=== PATIENT | male | born 1975 | race Caucasian/White ===

== ENCOUNTER 2024-04-23 13:02 | Inpatient (IN) | payer MEDICAID, OTHER ==
[~2024-04-23] VITALS: Ht 182.9 cm; Wt 92.5 kg
[2024-04-23] VITALS (18 sets, daily range): BP systolic 112–146; BP diastolic 64–85; PULSE 51–67; RESP 11–20; TEMP 97–98.5; O2SAT 92–99
--- NOTE | 2024-04-23 13:14 | ED.PDOC ---
HPI Comments 48-year-old male brought in by EMS presents with a chief complaint of chest pain x onset 1100 this morning. Patient states that his chest pain is localized to his substernal chest region, non-radiating, describes as crushing. Patient also appears diaphoretic upon arrival. CODE STEMI was called at 13:13 overhead. No other symptoms or modifying factors present at this time. Time Seen by MD: 13:00 Reviewed Notes: Track Supervisor Notes, Medications, Allergies Allergies: Coded Allergies: NO KNOWN ALLERGIES (Unverified , 04/23/24) Information Source: Patient, Emergency Med Personnel Mode of Arrival: EMS Severity: Moderate Timing: Hours Duration: Since onset Prehospital treatment: ASA (324), NTG (2) Location: Substernal Radiation: No Radiation Quality: Crushing Onset: At Rest Cardiac Risk Factors: Hyperlipidemia PE Risk Factors: None History of: None Past Medical History PAST MEDICAL HISTORY: High Lipids Surgical History: Denies all surgeries Family History Family History: Reviewed,noncontributory to illness Social History Smoker: Non-Smoker Alcohol: Denies ETOH Use Drugs: Denies Drug Use Lives In: Home Constitutional: reports: diaphoresis; denies: chills, fatigue, fever, malaise, sweats, weakness, others EENTM: denies: blurred vision, double vision, ear bleeding, ear discharge, ear drainage, ear pain, ear ringing, eye pain, eye redness, hearing loss, mouth pain, mouth swelling, nasal discharge, nose bleeding, nose congestion, nose pain, photophobia, tearing, throat pain, throat swelling, voice changes, others Respiratory: denies: cough, hemoptysis, orthopnea, SOB at rest, shortness of breath, SOB with excertion, stridor, wheezing, others Cardiovascular: reports: chest pain; denies: dizzy spells, diaphoresis, Dyspnea on exertion, edema, irregular heart beat, left arm pain, lightheadedness, palpitations, PND, syncope, others Gastrointestinal: denies: abdomen distended, abdominal pain, blood streaked bowels, constipated, diarrhea, dysphagia, difficulty swallowing, hematemesis, melena, nausea, poor appetite, poor fluid intake, rectal bleeding, rectal pain, vomiting, others Genitourinary: denies: burning, dysuria, flank pain, frequency, hematuria, incontinence, penile discharge, penile sore, pain, testicle pain, testicle swelling, urgency, others Neurological: denies: dizziness, fainting, headache, left sided numbness, left sided weakness, numbness, paresthesia, pre-existing deficit, right sided numbness, right sided weakness, seizure, speech problems, tingling, tremors, weakness, others Musculoskeletal: denies: back pain, gout, joint pain, joint swelling, muscle pain, muscle stiffness, neck pain, others Integumetry: denies: bruises, change in color, change in hair/nails, dryness, laceration, lesions, lumps, rash, wounds, others Allergic/Immunocompromised: denies: Difficulty Healing, Frequent Infections, Hives, Itching, others Hematologic/Lymphatic: denies: anemia, blood clots, easy bleeding, easy bruising, swollen glands, others Endocrine: denies: excessive hunger, excessive sweating, excessive thirst, excessive urination, flushing, intolerance to cold, intolerance to heat, unexplained weight gain, unexplained weight loss, others Psychiatric: denies: anxiety, bipolar disorder, depression, hopeless, panic disorder, schizophrenia, sleepless, suicidal, others All Other Systems: Reviewed and Negative Physical Exam General Appearance: No Apparent Distress, Normal HEENT: Normal ENT Inspection, Pharynx Normal, TMs Normal Neck: Full Range of Motion, Non-Tender, Normal, Normal Inspection Respiratory: Chest Non-Tender, Lungs Clear, No Accessory Muscle Use, No Respiratory Distress, Normal Breath Sounds Cardiovascular: No Edema, No JVD, No Murmur, No Gallop, Normal Peripheral Pulses, Regular Rate/Rhythm Breast Exam: Deferred Gastrointestinal: No Organomegaly, Non Tender, No Pulsatile Mass, Normal Bowel Sounds, Soft Genitalia: Deferred Pelvic: Deferred Rectal: Deferred Extremities: No calf tenderness, Normal capillary refill, Normal inspection, Normal range of motion, Non-tender, No pedal edema Musculoskeletal : Apperance: Normal Neurologic: Alert, psychiatric aides teacher II-XII nml as Tested, No Motor Deficits, Normal Affect, Normal Mood, No Sensory Deficits Cerebellar Function: Normal Reflexes: Normal Skin: Dry, Normal Color, Warm Lymphatic: No Adenopathy Was a procedure done? Was a procedure done?: No CP Differential Dx Differential Diagnosis: A-Flutter, Angina, Heart Failure, Hypoxia, VT, PAC's, Pulmonary Embolus, PVC's, Renal Failure, V-Fib Differential Diagnosis: HTN Accelerated, HTN Encephalopathy Differential Diagnosis: Myocardial Infarction X-Ray, Labs, Meds, VS Vital Signs Date Time Temp Pulse Resp B/P (MAP) Pulse Ox O2 Delivery O2 Flow Rate FiO2 04/23/24 13:15 62 17 96 Room Air* 0 21 04/23/24 13:15 62 17 107/50 (69) 96 04/23/24 13:06 51 04/23/24 13:04 52 04/23/24 13:02 98.6 53 13 107/50 (69) 96 Lab Test 04/23/24 13:10 Range/Units White Blood Count 14.8 H 4.4-10.8 10^3/uL Red Blood Count 4.86 4.5-5.90 10^6/uL Hemoglobin 15.1 13.5-17.5 g/dL Hematocrit 44.6 41.0-53.0 % Mean Corpuscular Volume 91.7 80.0-100.0 fL Mean Corpuscular Hemoglobin 31.0 28.0-32.0 pg Mean Corpuscular Hemoglobin Concent 33.8 32.0-36.0 g/dL Red Cell Distribution Width 14.2 11.8-14.3 % Platelet Count 346 140-450 10^3/uL Mean Platelet Volume 7.2 6.9-10.8 fL Neutrophils (%) (Auto) 67.7 37.0-80.0 % Lymphocytes (%) (Auto) 24.0 10.0-50.0 % Monocytes (%) (Auto) 6.0 0.0-12.0 % Eosinophils (%) (Auto) 1.5 0.0-7.0 % Basophils (%) (Auto) 0.8 0.0-2.0 % Neutrophils # (Auto) 10.1 H 1.6-8.6 10 ^3/uL Lymphocytes # (Auto) 3.6 0.4-5.4 10 ^3/uL Monocytes # (Auto) 0.9 0-1.3 10 ^3/uL Eosinophils # (Auto) 0.2 0-0.8 10 ^3/uL Basophils # (Auto) 0.1 0-0.2 10 ^3/uL Nucleated Red Blood Cells 0.0 % Prothrombin Time 10.9 9.3-11.8 sec Prothrombin Time INR 1.03 0.9-1.15 Activated Partial Thromboplast Time 26.8 24.5-34.5 SEC Sodium Level 141 136-145 mmol/L Potassium Level 3.7 3.5-5.1 mmol/L Chloride Level 110 H 98-107 mmol/L Carbon Dioxide Level 25 20-31 mmol/L Anion Gap 6 5-15 Blood Urea Nitrogen 7 L 9-23 mg/dL Creatinine 0.96 0.700-1.30 mg/dL Glomerular Filtration Rate Calc 97 >90 mL/min BUN/Creatinine Ratio 7.3 L 10.0-20.0 Serum Glucose 167 H 74-106 mg/dL Lactic Acid Level 3.3 *H 0.4-2.0 mmol/L Calcium Level 9.5 8.7-10.4 mg/dL Total Bilirubin 0.4 0.2-1.0 mg/dL Aspartate Amino Transferase (AST) 12 L 13-40 U/L Alanine Aminotransferase (ALT) 9 7-40 U/L Alkaline Phosphatase 73 46-116 U/L Troponin I High Sensitivity 9 </=54 ng/L B-Type Natriuretic Peptide 175.00 0-100 pg/mL Total Protein 6.8 5.7-8.2 g/dL Albumin 4.1 3.2-4.8 g/dL Current Medications Medications (Trade) Dose Ordered Sig/Michelle Route Start Time Stop Time Status Last Admin Heparin Sodium (Porcine) 5,000 units ONCE ONCE IV 04/23/24 13:15 04/23/24 13:16 DC 04/23/24 13:20 Time of 1ST Reevaluation: 13:30 Reevaluation 1ST: Unchanged Patient Education/Counseling: Diagnosis, Treatment, Prognosis Family Education/Counseling: No Family Present Departure 1 Departure Time of Disposition: 14:37 (Patient presented with chest pain that was concerning for possible STEMI, ACS, PE, Pneumonia, Muscle Strain, COPD, Dissection. Data: 1. I ordered and reviewed the result of at least 3 labs incl uding a CBC, BMP, and Troponin. 2. I independently interpreted the following tests: EKG which shows concern for acute myocardial infarction and Chest X-ray which shows but I just.Risk:This patient has a high risk of morbidity due to further diagnostic testing or treatment and may suffer from an acute cardiac or respiratory disorder. Workup reveals concerning for ACS and patient was urgently taken to the computer lab aide.) Impression: Primary Impression: Acute chest pain Additional Impression: Diaphoresis Disposition: ADMITTED INPATIENT Admit to: Med Surg Condition: Critical Critical Care Note Critical Care Time?: Yes Critical care comment: Severe acute chest pain Authorized and Performed by: Miko Boswell MD Total critical care time: Approximately 38 minutes Due to a high probability of clinically significant, life threatening deterioration, the patient required my highest level of preparedness to intervene emergently and I personally spent this critical care time directly and personally managing the patient. This critical care time included obtaining a history; examining the patient; pulse oximetry; ordering and review of studies; arranging urgent treatment with development of a management plan; evaluation of patient's response to treatment; frequent reassessment; and, discussions with other providers. This critical care time was performed to assess and manage the high probability of imminent, life-threatening deterioration that could result in multi-organ failure. It was exclusive of separately billable procedures and treating other patients and teaching time. Please see my other sections and the rest of the note for further information on patient assessment and treatment. Stability Stability form required: No Heart Score Heart Score: Heart Score Response (Comments) Value History Highly Suspicious [address]-Deviation 2 Age 45-64 1 Risk Factors 1 or 2 risk factors 1 Troponin 1-2 x's Normal limit 1 Total 7 I personally scribed for MIKO BOSWELL MD ([email or web address]) on 04/23/24 at 13:14. Electronically submitted by Franco Kimble ([email or web address]). MIKO BOSWELL MD Apr 23, 2024 13:14
[2024-04-23] MEDS: HEPARIN SODIUM (PORCINE) 5000 UNITS/ML 1ML VIAL IV ONE (13:20)
[2024-04-23 13:38] LABS: Basophils # (auto) 0.1 10 ^3/uL (0-0.2); Basophils % (auto) 0.8 % (0.0-2.0); Eosinophils # (auto) 0.2 10 ^3/uL (0-0.8); Eosinophils % (auto) 1.5 % (0.0-7.0); Hematocrit 44.6 % (41.0-53.0); Hemoglobin 15.1 g/dL (13.5-17.5); Lymphocytes # (auto) 3.6 10 ^3/uL (0.4-5.4); Mean Corpuscular Hgb Conc. 33.8 g/dL (32.0-36.0); Mean Corpuscular Volume 91.7 fL (80.0-100.0); Monocytes # (auto) 0.9 10 ^3/uL (0-1.3); Neutrophils # (auto) 10.1 10 ^3/uL (1.6-8.6); Neutrophils % (auto) 67.7 % (37.0-80.0); Platelet Count (auto) 346 10^3/uL (140-450); Red Blood Cells 4.86 10^6/uL (4.5-5.90); Red Cell Distribution Width 14.2 % (11.8-14.3); White Blood Cell 14.8 10^3/uL (4.4-10.8)
--- NOTE | 2024-04-23 13:42 | DVH ---
CHEST RADIOGRAPH Indication:CHEST PAIN Technique: Single frontal view of the chest was obtained COMPARISON: None FINDINGS: Lines and Tubes: None Lungs: Clear Pleura: No effusion. No pneumothorax. Cardiomediastinal contours: Unremarkable Bones: Unremarkable IMPRESSION: No acute disease.
[2024-04-23] MEDS: IODIXANOL 320MG/ML 100ML BTL IV ONE (13:47)
[2024-04-23] MEDS: HEPARIN IN NS 1000Units/500mL 1,500 ML ONE (13:47)
--- NOTE | 2024-04-23 13:47 | DVHINCON2 ---
Date Seen: Apr 23, 2024 Referring Physician MD Andreia Reason for Consultation Chest pain History of Present Illness This is a 48-year-old male patient who presents to the emergency room with chief complaint of chest pain. The patient reports that when he woke up at approximately 11:00 a.m. this morning he noticed the chest pain. He describes it as unprovoked, intermittent, pressure-like in nature, and substernal without radiation. Associated symptoms include diaphoresis. He denies any alleviating or aggravating factors. The patient was brought to the emergency room via EMS. The patient was given sublingual nitroglycerin 0.4mg X 2 doses by EMS prior to arrival. Upon emergency room arrival, a twelve lead electrocardiogram revealed sinus bradycardia with significant S-T segment depression to anterolateral leads. At the time of assessment, there are no laboratory values. Significant past medical history includes hyperlipidemia, tobacco use, remote history of amphetamine use, and obesity. The patient denies any other significant cardiac history. Past Medical History Past medical history reviewed. No other significant than mentioned above. Past Surgical History Denies Family History Family history reviewed. 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 Current Medications Current Medications Medications (Trade) Dose Ordered Sig/Michelle Route PRN Reason Start Time Stop Time Status Last Admin Heparin Sodium/ Dextrose 250 ml @ 9.6 mls/hr Q24H IV 04/23/24 13:15 UNV Review of Systems Constitutional: Diaphoresis, generalized weakness Ears, Nose, & Throat: No symptom reported Eyes: No symptom reported Neurological: No symptoms reported Pulmonary/Respiratory: No symptoms reported Cardiovascular: Chest pain Gastrointestinal: No symptom reported Genitourinary: No symptom reported Musculoskeletal: No symptom reported Skin: No symptom reported Psychiatric: No symptom reported Endocrine: No symptom reported Hematologic/Lymphatic: No symptom reported Vital Signs Vital Signs Date Time Temp Pulse Resp B/P (MAP) Pulse Ox O2 Delivery O2 Flow Rate FiO2 04/23/24 13:15 62 17 96 Room Air* 0 21 04/23/24 13:15 107/50 (69) Physical Exam General Appearance: Cooperative. Overweight Pulmonary/Respiratory: Clear, bilateral breaths sounds. Cardiovascular/Chest: Regular rate and rhythm. Peripheral Pulses: 2+ Radial (R). 2+ Radial (L). 2+ Pedal (R). 2+ Pedal (L) Abdominal Exam: Normal bowel sounds. Ankle Exam: Negative ankle edema Lower extremities: Negative lower extremity edema Neuro/Mental Status: A/OX4, coherent. Thoughts/Psych: Normal thought pattern. Appropriate mood and affect. Good judgment and insight. Appearance: No acute distress. Skin Exam: Pale, clammy, diaphoretic Labs/Diagnostic Data Labs Test 04/23/24 13:10 Range/Units Assessment Chest pain, rule out coronary artery disease Hyperlipidemia Tobacco use Remote history of amphetamine use (Quit in 2010) Obesity Plan/Recommendation We will continue with following plan/recommendations (Dr. Thorpe): The patient was seen and examined at bedside in the emergency room. The patient remains symptomatic with severe chest pain and diaphoresis. Given the patient's clinical presentation and significant twelve lead electrocardiogram, we will urgently take the patient for a coronary angiogram with left heart catheterization. Plan discussed with . The procedure was discussed with the patient in full detail including risks and benefits. Risks include but are not limited to bleeding, contrast induced nephropathy, stroke, and even . The patient understands and is agreeable to undergo the procedure. The patient was given a heparin bolus and a heparin drip was initiated by ER physician. We will schedule the patient at soonest availability. vat house laborer team at bedside to transfer patient. Thank you for allowing us to care for this patient. Please call with any questions or concerns. Critical care time spent: 40 minutes This medical document was created using an electronic medical record system with voice recognition software and computerized dictation system. Although this document has been carefully reviewed, there might still be some phonetic and typographical errors. Occasional wrong-word or ``sound-alike substitutions may have occurred due to the inherent limitations of voice recognition software. These areas are purely typographical due to imperfections of the software programs and do not reflect any compromise in the patient's medical care. Please read the chart carefully and recognize, using context, where these substitutions have occurred. Plan discussed with: Patient Date of Service: Apr 23, 2024 Billing Provider: RAFAEL THORPE MD Cardiology Common Codes: 09233-CECAKNP INP/OBS CARE (High) GRECIA JIANG PROTECTIVE SERVICES CASE WORKER Apr 23, 2024 13:47
[2024-04-23] MEDS: ANGIOMAX 250 MG VIAL IV ONE (13:48)
[2024-04-23] MEDS: SODIUM CHL 0.9% 50 ML ONE (13:49)
[2024-04-23] MEDS: MIDAZOLAM HCL 2MG/2ML 2ml VIAL (1mg/ml) ONE (13:49)
[2024-04-23] MEDS: fentaNYL CITRATE 100 MCG/2 ML VL ONE (13:49)
[2024-04-23] MEDS: VERAPAMIL 2.5MG/ML INJ 2ML VIAL IV ONE (13:49)
[2024-04-23] MEDS: LIDOCAINE 2%HCL (LOCAL ANESTH.) INJ 20ML MDV ONE (13:49)
[2024-04-23 13:57] LABS: Albumin 4.1 g/dL (3.2-4.8); Alkaline Phosphatase 73 U/L (46-116); Anion Gap 6 (5-15); Aspartate Aminotransferase 12 U/L (13-40); BUN/Creatinine Ratio 7.3 (10.0-20.0); Blood Urea Nitrogen 7 mg/dL (9-23); Calcium 9.5 mg/dL (8.7-10.4); Carbon Dioxide 25 mmol/L (20-31); Chloride 110 mmol/L (98-107); Glucose 167 mg/dL (74-106); Potassium 3.7 mmol/L (3.5-5.1); Sodium 141 mmol/L (136-145)
[2024-04-23 13:58] LABS: Alanine Aminotransferase 9 U/L (7-40); Bilirubin, Total 0.4 mg/dL (0.2-1.0); Total Protein 6.8 g/dL (5.7-8.2)
[2024-04-23 14:01] LABS: INR 1.03 (0.9-1.15); Partial Thromboplastin Time 26.8 SEC (24.5-34.5); Prothrombin Time 10.9 sec (9.3-11.8)
[2024-04-23 14:04] LABS: Lactic Acid w/Reflex 3.3 mmol/L (0.4-2.0)
[2024-04-23] MEDS: HEPARIN DRIP/D5W 100UNITS/ML 250 ML IV SCH (14:15)
[2024-04-23] MEDS: ASPirin 325 MG TAB PO ONE (14:15)
--- NOTE | 2024-04-23 14:21 | DVHOP2 ---
Operative Report -Cardiology Report Details Date: 04/23/24 Preop Diagnosis: Acute chest pain with the active ongoing symptoms Postop Diagnosis: Coronary angiogram revealed mild coronary artery disease without significant atherosclerotic plaquing or stenosis to account for patient's symptoms. Thus his symptoms likely representing acute pericarditis Surgeon: Aubire Bain MD Anesthesiologist: Conscious sedation using25 mcg of fentanyl as well as a mg of midazolam. It was given under the direct supervision of the primary procedure analyst myself in the presence of the attending nurses. Patient was monitored for total of35 minutes. Without obvious complication Anesthesia: Local Consent: The patient was informed of the risks and benefits of the procedure. These include but are not limited to complications of anesthesia, postoperative infection, incomplete relief of symptoms, recurrence of symptoms, damage to blood vessels, nerves and tendons, deep venous thrombosis, pulmonary embolism and possible need for repeat surgery in the future. Indications for Surgery: This is a 48-year-old male patient who presents to the emergency room with chief complaint of chest pain. The patient reports that when he woke up at approximately 11:00 a.m. this morning he noticed the chest pain. He describes it as unprovoked, intermittent, pressure-like in nature, and substernal without radiation. Associated symptoms include diaphoresis. He denies any alleviating or aggravating factors. The patient was brought to the emergency room via EMS. The patient was given sublingual nitroglycerin 0.4mg X 2 doses by EMS prior to arrival. Upon emergency room arrival, a twelve lead electrocardiogram revealed sinus bradycardia with significant S-T segment depression to anterolateral leads. At the time of assessment, there are no laboratory values. Significant past medical history includes hyperlipidemia, tobacco use, remote history of amphetamine use, and obesity. The patient denies any other significant cardiac history. Name of Procedure Performed 1. Left heart catheterization with left ventricular end-diastolic pressure measurement. 2. Selective right and left coronary angiography utilizing right transradial approach. 3. Conscious sedation using25 mcg of fentanyl as well as a mg IV midazolam Procedure Details Procedure Details: Procedure note and vascular access: After informed consent was obtained, risks, benefits, complications, and alternatives were discussed in detail with the patient who agrees to have the procedure done. At the beginning of the procedure, the right wrist and the right groin area were prepped and draped in the regular sterile fashion. Patient received conscious sedation of25 mcg of fentanyl as well as a mg IV midazolam. A total of 2 cc of 1% xylocaine was given locally for anesthesia before a six Pashto sheath was placed using modified Seldinger technique without difficulty. A cocktail of 2.5 mg of verapamil as well as 100 mcg of nitroglycerin were given intra-arterial to prevent vasospasm, findings were as follows: 1. Left heart catheterization with left ventricular end-diastolic pressure measu rement: With the help of a tiger five Pashto catheter as well as a J-tip wire we were able to cross the aortic and measured left ventricular end-diastolic pressure which was at 2 mm of mercury. There was a gradient of 14.5 mm of mercury across the aortic valve on the pullback indicating mild aortic valve stenosis. 2. Selective right and left coronary angiography utilizing right transradial approach: 1. Left main comes off the left coronary cusp it is a large, it has no significant atherosclerotic plaquing, it bifurcates distally into large left anterior descending artery as well as medium-sized left circumflex vessel. 2. Left anterior descending artery it is a large vessel with transapical course it gives rise to two diagonal branches, it has mild irregularity with mild atherosclerotic plaquing in 20-30% but no significant stenosis was noted. 3. The left circumflex artery is small to medium-sized vessel gives rise to two obtuse marginal branches it is free of any significant atherosclerotic plaquing. 4. Right coronary artery is a large dominant system it bifurcated distally into large posterior descending artery as well as a large posterolateral branch. It has mild irregularity without significant stenosis. Impression and plan: 1. No significant atherosclerotic plaquing was noted to account for patient's symptoms. 2. Patient presentation could be due to pretty myocarditis I would recommend serial enzymes as well as echocardiogram to rule out the presence of pericardial effusion. 3. Patient would need to be treated as a case of pericarditis or to rule out other causes of chest pain. In the meantime he should undergo risk factor modification as he has mild atherosclerotic plaque changes. Condition Good Disposition AUBRIE BAIN MD Apr 23, 2024 14:21
--- NOTE | 2024-04-23 14:59 | DVHHP2 ---
Admitting Diagnosis: Chest pain History of Present Illness 48-year-old male brought in by EMS presents with a chief complaint of chest pain x onset 1100 this morning. Patient states that his chest pain is localized to his substernal chest region, non-radiating, describes as crushing. Patient also appears diaphoretic upon arrival. CODE STEMI was called at 13:13 overhead. No other symptoms or modifying factors present at this time. PAST MEDICAL HISTORY: High Lipids Surgical History: Denies all surgeries Family History Family History: Reviewed,noncontributory to illness Social History Smoker: Non-Smoker Alcohol: Denies ETOH Use Drugs: Denies Drug Use Lives In: Home Allergies: Coded Allergies: NO KNOWN ALLERGIES (Unverified , 04/23/24) Current Medications Current Medications Medications (Trade) Dose Ordered Sig/Michelle Route PRN Reason Start Time Stop Time Status Last Admin Heparin Sodium/ Dextrose 250 ml @ 10 mls/hr Q24H IV 04/23/24 13:15 04/23/24 15:48 DC Ibuprofen (Motrin Tablet) 600 mg TID PO 04/23/24 15:00 04/23/24 16:59 Pantoprazole Sodium (Protonix) 40 mg DAILY IV 04/23/24 15:00 04/23/24 15:14 Sodium Chloride (Saline Lock Ns) 10 ml Q8HR IV 04/23/24 22:00 Docusate Sodium (Colace Capsule) 100 mg BIDPRN PRN PO FOR CONSTIPATION 04/23/24 15:00 Acetaminophen (Tylenol Tablet) 650 mg Q6HP PRN PO PAIN SCALE 1-3 OR TEMP>100.4 04/23/24 15:00 Hydromorphone HCl (Dilaudid Injection) 0.5 mg Q4HP PRN IV SEVERE PAIN (7-10 PAIN SCALE) 04/23/24 15:00 04/23/24 15:05 Ondansetron HCl (Zofran) 4 mg Q4HP PRN IV NAUSEA / VOMITING 04/23/24 15:00 Enoxaparin Sodium (Lovenox) 40 mg DAILY SC 04/23/24 15:00 04/23/24 15:27 Nitroglycerin (Ntrostat Sublingual) 0.4 mg Q5MINP PRN SL FOR CHEST PAIN 04/23/24 15:00 Morphine Sulfate 2 mg Q30M PRN IV FOR CHEST PAIN 04/23/24 15:00 Vital Signs Vital Signs Date Time Temp Pulse Resp B/P (MAP) Pulse Ox O2 Delivery O2 Flow Rate FiO2 04/23/24 17:00 57 11 125/64 (84) 92 04/23/24 14:15 97.0 97.0 04/23/24 13:15 Room Air* 0 21 Physical Exam General-48 years old male, well nourished well developed. No apparent distress HEENT-atraumatic normocephalic Heart-regular rate and rhythm Lungs clear to auscultate Abdomen soft nontender nondistended Musculoskeletal-no edema cyanosis Neuro-AO x3, no focal deficits Results Labs Test 04/23/24 15:53 04/23/24 13:10 Range/Units Lactic Acid Level 1.6 0.4-2.0 mmol/L Troponin I High Sensitivity 10 </=54 ng/L White Blood Count 14.8 H 4.4-10.8 10^3/uL Red Blood Count 4.86 4.5-5.90 10^6/uL Hemoglobin 15.1 13.5-17.5 g/dL Hematocrit 44.6 41.0-53.0 % Mean Corpuscular Volume 91.7 80.0-100.0 fL Mean Corpuscular Hemoglobin 31.0 28.0-32.0 pg Mean Corpuscular Hemoglobin Concent 33.8 32.0-36.0 g/dL Red Cell Distribution Width 14.2 11.8-14.3 % Platelet Count 346 140-450 10^3/uL Mean Platelet Volume 7.2 6.9-10.8 fL Neutrophils (%) (Auto) 67.7 37.0-80.0 % Lymphocytes (%) (Auto) 24.0 10.0-50.0 % Monocytes (%) (Auto) 6.0 0.0-12.0 % Eosinophils (%) (Auto) 1.5 0.0-7.0 % Basophils (%) (Auto) 0.8 0.0-2.0 % Neutrophils # (Auto) 10.1 H 1.6-8.6 10 ^3/uL Lymphocytes # (Auto) 3.6 0.4-5.4 10 ^3/uL Monocytes # (Auto) 0.9 0-1.3 10 ^3/uL Eosinophils # (Auto) 0.2 0-0.8 10 ^3/uL Basophils # (Auto) 0.1 0-0.2 10 ^3/uL Nucleated Red Blood Cells 0.0 % Prothrombin Time 10.9 9.3-11.8 sec Prothrombin Time INR 1.03 0.9-1.15 Activated Partial Thromboplast Time 26.8 24.5-34.5 SEC Sodium Level 141 136-145 mmol/L Potassium Level 3.7 3.5-5.1 mmol/L Chloride Level 110 H 98-107 mmol/L Carbon Dioxide Level 25 20-31 mmol/L Anion Gap 6 5-15 Blood Urea Nitrogen 7 L 9-23 mg/dL Creatinine 0.96 0.700-1.30 mg/dL Glomerular Filtration Rate Calc 97 >90 mL/min BUN/Creatinine Ratio 7.3 L 10.0-20.0 Serum Glucose 167 H 74-106 mg/dL Calcium Level 9.5 8.7-10.4 mg/dL Total Bilirubin 0.4 0.2-1.0 mg/dL Aspartate Amino Transferase (AST) 12 L 13-40 U/L Alanine Aminotransferase (ALT) 9 7-40 U/L Alkaline Phosphatase 73 46-116 U/L B-Type Natriuretic Peptide 175.00 0-100 pg/mL Total Protein 6.8 5.7-8.2 g/dL Albumin 4.1 3.2-4.8 g/dL Primary Diagnosis Chest pain likely due to acute pericarditis ruled out ACS Lactic acidosis Plan Status post left heart catheterization found the patient has now in cardiac blockage. Per opto mechanical technician recommended to treat as acute pancreatitis Trend lactic acid until normalize. Start ibuprofen 600 mg t.i.d. PPI for GI prophylaxis Check echo of the heart Cardiology consult/follow up Cardiac diet pain control Full code Lovenox DVT prophylaxis PPI for GI prophylaxis Plan discussed with: Patient Problems List: (1) Acute chest pain Status: Acute Date of Service: Apr 23, 2024 Billing Provider: SHIRIN BALDWIN MD Common Visit Codes: [id number] INP/OBS CARE (HIGH) SHIRIN BALDWIN MD Apr 23, 2024 14:59
[2024-04-23] MEDS ORDERED: ONDANSETRON HCL 4 MG/2 ML VIAL IV PRN (15:00)
[2024-04-23] MEDS ORDERED: MORPHINE SULFATE INJ 2 MG/ml SYRG IV PRN (15:00)
[2024-04-23] MEDS ORDERED: DOCUSATE SOD 100 MG CAP PO PRN (15:00)
[2024-04-23] MEDS ORDERED: ACETAMINOPHEN 325 MG TAB PO PRN (15:00)
[2024-04-23] MEDS ORDERED: NITROGLYCERIN 0.4 MG SL TAB SL PRN (15:00)
[2024-04-23] MEDS: HYDROmorphone HCL 2 MG/ML VL/or syr IV PRN (15:05)
[2024-04-23] MEDS: HYDROmorphone HCL 2 MG/ML VL/or syr ONE (15:09)
[2024-04-23] MEDS: PANTOPRAZOLE 40 MG/10 ML VIAL INJ IV SCH (15:14)
[2024-04-23] MEDS: ENOXAPARIN SOD 40 MG/0.4 ML SYRINGE SC SCH (15:27)
[2024-04-23] MEDS: IBUPROFEN 600 MG TAB PO SCH (16:59)
--- NOTE | 2024-04-23 18:40 | DVHSR ---
APPROVED REPORT EXAM: Two-dimensional and M-mode echocardiogram with Doppler and color Doppler. Blood Pressure: 107/50 mmHg INDICATION Eval cardiac function, ACS RISK FACTORS Height: 72, Weight: 180 DIMENSIONS LVDd4.9 (3.8-5.7cm)LA (2D)4.3 (1.9-4.0cm)Aortic Root3.4 (2.0-3.7cm) LVDs3.3 (2.5-4.0cm)LA (MM) (1.9-4.0cm)Aortic Cusp Exc2.3 (1.5-2.0cm) EF (%) 62.0 (55-70%)Rt. Atrium4.4 (1.9-4.0cm)Asc. Aorta2.9 cm IVSd1.2 (0.7-1.1cm)RV (D) (1.8-2.4cm) PWd1.2 (0.7-1.1cm) Mitral Valve MitralMitral Stenosis E wave0.83m/sMV Mean GR.mmHg A wave0.46m/sMV Peak GR.53mmHg E/A ratio1.82D MVAcm2 DECEL [id number] 1/2 [id number] IVRTmsDop MVA1.96cm2 Aortic Valve Aortic ValveAortic Stenosis V11.05m/Tal Mean GR.4mmHg V21.38m/Tal Peak GR.8mmHg LVOT Diameter2.1 (1.8-2.4cm)Doppler AVA2.63cm2 Pulmonic Valve V20.73m/s Tricuspid Valve TR Velocity2.25m/s [id number] Conclusion Normal left ventricular size and dimension. Normal left ventricular systolic function estimated ejec tion fraction 55%. Normal diastolic function. Normal right ventricular size and dimension. Normal right ventricular systolic function. Normal biatrial size and dimension. Normal Aortic valve structure and function. Normal mitral valve structure and function. Normal tricuspid structure and function. The pulmonary valve is grossly normal. No pericardial effusion
[2024-04-23] MEDS: SODIUM CHLOR 0.9% PF (SALINE LOCK) 10ML VIAL/SYR IV SCH (22:00)
[2024-04-24] VITALS (7 sets, daily range): BP systolic 110–149; BP diastolic 69–83; PULSE 71–81; RESP 18–19; TEMP 36.7; O2SAT 96–98
[2024-04-24 06:16] LABS: Basophils # (auto) 0.1 10 ^3/uL (0-0.2); Basophils % (auto) 0.3 % (0.0-2.0); Eosinophils # (auto) 0.1 10 ^3/uL (0-0.8); Eosinophils % (auto) 0.5 % (0.0-7.0); Hematocrit 42.2 % (41.0-53.0); Hemoglobin 14.5 g/dL (13.5-17.5); Lymphocytes # (auto) 2.3 10 ^3/uL (0.4-5.4); Lymphocytes % (auto) 12.6 % (10.0-50.0); Mean Corpuscular Hemoglobin 31.1 pg (28.0-32.0); Mean Corpuscular Hgb Conc. 34.5 g/dL (32.0-36.0); Mean Corpuscular Volume 90.1 fL (80.0-100.0); Monocytes % (auto) 5.7 % (0.0-12.0); Neutrophils # (auto) 14.7 10 ^3/uL (1.6-8.6); Neutrophils % (auto) 80.9 % (37.0-80.0); Platelet Count (auto) 253 10^3/uL (140-450); Red Blood Cells 4.68 10^6/uL (4.5-5.90); Red Cell Distribution Width 13.7 % (11.8-14.3); White Blood Cell 18.2 10^3/uL (4.4-10.8)
[2024-04-24 06:34] LABS: Alanine Aminotransferase 10 U/L (7-40); Albumin 4.1 g/dL (3.2-4.8); Alkaline Phosphatase 72 U/L (46-116); Anion Gap 3 (5-15); BUN/Creatinine Ratio 12.3 (10.0-20.0); Blood Urea Nitrogen 10 mg/dL (9-23); Calcium 9.1 mg/dL (8.7-10.4); Carbon Dioxide 27 mmol/L (20-31); Chloride 111 mmol/L (98-107); Glucose 109 mg/dL (74-106); Potassium 4.2 mmol/L (3.5-5.1); Sodium 141 mmol/L (136-145)
[2024-04-24 06:35] LABS: Bilirubin, Total 0.5 mg/dL (0.2-1.0); Total Protein 6.5 g/dL (5.7-8.2)
[2024-04-24 06:36] LABS: Aspartate Aminotransferase < 8 U/L (13-40)
--- NOTE | 2024-04-24 09:18 | DVHPN2 ---
Consult Progress Note Subjective Other Systems: Patient remains in normal sinus rhythm with depressed ST waves on quality assurance monitor. Objective vital signs Vital Sign Date Time Temp Pulse Resp B/P (MAP) Pulse Ox O2 Delivery O2 Flow Rate FiO2 04/24/24 09:03 98.8 74 19 137/79 (98) 96 98.8 04/23/24 19:40 Room Air* 0 21 Total Intake and Output 04/23/24 04/23/24 04/24/24 14:59 22:59 06:59 Intake Total 180 ml Balance 180 ml medications Current Medications Medications Dose Ordered Sig/Michelle Route Start Time Stop Time Status Last Admin Dose Admin Ibuprofen 600 mg TID PO 04/23/24 15:00 04/24/24 06:09 600 MG Pantoprazole Sodium 40 mg DAILY IV 04/23/24 15:00 04/23/24 15:14 40 MG Sodium Chloride 10 ml Q8HR IV 04/23/24 22:00 04/24/24 06:09 10 ML Docusate Sodium 100 mg BIDPRN PRN PO 04/23/24 15:00 Acetaminophen 650 mg Q6HP PRN PO 04/23/24 15:00 Hydromorphone HCl 0.5 mg Q4HP PRN IV 04/23/24 15:00 04/23/24 15:05 0.5 MG Ondansetron HCl 4 mg Q4HP PRN IV 04/23/24 15:00 Enoxaparin Sodium 40 mg DAILY SC 04/23/24 15:00 04/23/24 15:27 40 MG Nitroglycerin 0.4 mg Q5MINP PRN SL 04/23/24 15:00 Morphine Sulfate 2 mg Q30M PRN IV 04/23/24 15:00 Examination: GENERAL:Normal, LUNGS:Normal, CVS:Normal, NEURO:Normal laboratory and microbiology Laboratory Tests 04/24/24 05:53 Test 04/24/24 05:53 Range/Units Serum Glucose 109 H 74-106 mg/dL Problem List/Assessment/Plan Problem List/Assessment/Plan Chest pain, ruled out coronary artery disease Acute pericarditis Hyperlipidemia Tobacco use Remote history of amphetamine use (Quit in 2010) Obesity Plan/Recommendation (Dr. Thorpe): Patient seen and examined at bedside with . The patient underwent a coronary angiogram left heart catheterization on 04/23/2024 which revealed no significant atherosclerotic plaquing. The patient's presentation likely secondary to pericarditis. We will recommend colchicine and ibuprofen treatment. Risk factor modifications also discussed with the patient full detail including dietary and lifestyle changes, and cessation of tobacco use. There is no further inpatient cardiac workup indicated at this time. Thank you for allowing us to care for this patient. Please call with any questions or concerns. This medical document was created using an electronic medical record system with voice recognition software and computerized dictation system. Although this document has been carefully reviewed, there might still be some phonetic and typographical errors. Occasional wrong-word or ``sound-alike substitutions may have occurred due to the inherent limitations of voice recognition software. These areas are purely typographical due to imperfections of the software programs and do not reflect any compromise in the patient's medical care. Please read the chart carefully and recognize, using context, where these substitutions have occurred. Plan discussed with: Patient Date of Service: Apr 24, 2024 Billing Provider: RAFAEL THORPE MD Common Visit Codes: [id number] INP/OBS CARE(HIGH) GRECIA JIANG [facility] Apr 24, 2024 09:18
--- NOTE | 2024-04-24 11:40 | ECG ---
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
[2024-04-24 13:51] LABS: Basophils # (auto) 0.1 10 ^3/uL (0-0.2); Basophils % (auto) 0.5 % (0.0-2.0); Eosinophils # (auto) 0.1 10 ^3/uL (0-0.8); Eosinophils % (auto) 0.5 % (0.0-7.0); Hemoglobin 14.7 g/dL (13.5-17.5); Lymphocytes # (auto) 1.9 10 ^3/uL (0.4-5.4); Lymphocytes % (auto) 12.4 % (10.0-50.0); Mean Corpuscular Hemoglobin 30.1 pg (28.0-32.0); Mean Corpuscular Hgb Conc. 33.4 g/dL (32.0-36.0); Mean Corpuscular Volume 90.3 fL (80.0-100.0); Monocytes # (auto) 0.9 10 ^3/uL (0-1.3); Monocytes % (auto) 5.8 % (0.0-12.0); Neutrophils # (auto) 12.5 10 ^3/uL (1.6-8.6); Neutrophils % (auto) 80.8 % (37.0-80.0); Nucleated Red Blood Cells % 0.1 %; Platelet Count (auto) 268 10^3/uL (140-450); Red Blood Cells 4.87 10^6/uL (4.5-5.90); Red Cell Distribution Width 13.5 % (11.8-14.3); White Blood Cell 15.4 10^3/uL (4.4-10.8)
[2024-04-24 14:09] LABS: Alanine Aminotransferase 12 U/L (7-40); Albumin 3.9 g/dL (3.2-4.8); Alkaline Phosphatase 74 U/L (46-116); Anion Gap 5 (5-15); Aspartate Aminotransferase 9 U/L (13-40); Blood Urea Nitrogen 13 mg/dL (9-23); Calcium 9.6 mg/dL (8.7-10.4); Carbon Dioxide 27 mmol/L (20-31); Chloride 109 mmol/L (98-107); Glucose 108 mg/dL (74-106); Magnesium 2.2 mg/dL (1.6-2.6); Potassium 4.1 mmol/L (3.5-5.1); Sodium 141 mmol/L (136-145)
[2024-04-24 14:10] LABS: Bilirubin, Total 0.6 mg/dL (0.2-1.0); Total Protein 6.3 g/dL (5.7-8.2)
[2024-04-24] MEDS: COLCHICINE 0.6 MG CAP PO ONE (15:48)
[2024-04-24 16:47] LABS: Amphetamine Screen, Urine Neg (NEGATIVE); Barbiturate Scree,Urine Neg (NEGATIVE); Benzodiazephine Screen, Urine Pos (NEGATIVE); Cannabinoid Screen, Urine Neg (NEGATIVE); Cocaine Screen, Urine Neg (NEGATIVE); Opiate Scree,Urine Neg (NEGATIVE); Phencyclidine Screen, Urine Neg (NEGATIVE)
[2024-04-24] MEDS ORDERED: HYDR1TAB97 PO (16:59)
[2024-04-24] MEDS ORDERED: IBUP1TAB5 PO (16:59)
[2024-04-24] MEDS ORDERED: COLC1CAP PO (16:59)
[2024-04-24] MEDS ORDERED: PANT40TA2 PO (16:59)
--- NOTE | 2024-04-24 17:04 | DVHDS2 ---
Discharge Summary Date of Admission Apr 23, 2024 at 14:51 Date of Discharge: Apr 24, 2024 Admitting Diagnosis chest pain, rule out ACS Labs/Diagnostic Data: Laboratory Results Test 04/24/24 16:13 04/24/24 15:55 04/24/24 13:01 04/23/24 15:53 Troponin I High Sensitivity 14 ng/L (</=54) Urine Opiates Screen Neg (NEGATIVE) Urine Fentanyl Screen Pos (NEGATIVE) Urine Barbiturates Screen Neg (NEGATIVE) Urine Phencyclidine Screen Neg (NEGATIVE) Urine Amphetamines Screen Neg (NEGATIVE) Urine Benzodiazepines Screen Pos (NEGATIVE) Urine Cocaine Screen Neg (NEGATIVE) Urine Cannabinoids Screen Neg (NEGATIVE) White Blood Count 15.4 10^3/uL (4.4-10.8) Red Blood Count 4.87 10^6/uL (4.5-5.90) Hemoglobin 14.7 g/dL (13.5-17.5) Hematocrit 44.0 % (41.0-53.0) Mean Corpuscular Volume 90.3 fL (80.0-100.0) Mean Corpuscular Hemoglobin 30.1 pg (28.0-32.0) Mean Corpuscular Hemoglobin Concent 33.4 g/dL (32.0-36.0) Red Cell Distribution Width 13.5 % (11.8-14.3) Platelet Count 268 10^3/uL (140-450) Mean Platelet Volume 7.6 fL (6.9-10.8) Neutrophils (%) (Auto) 80.8 % (37.0-80.0) Lymphocytes (%) (Auto) 12.4 % (10.0-50.0) Monocytes (%) (Auto) 5.8 % (0.0-12.0) Eosinophils (%) (Auto) 0.5 % (0.0-7.0) Basophils (%) (Auto) 0.5 % (0.0-2.0) Neutrophils # (Auto) 12.5 10 ^3/uL (1.6-8.6) Lymphocytes # (Auto) 1.9 10 ^3/uL (0.4-5.4) Monocytes # (Auto) 0.9 10 ^3/uL (0-1.3) Eosinophils # (Auto) 0.1 10 ^3/uL (0-0.8) Basophils # (Auto) 0.1 10 ^3/uL (0-0.2) Nucleated Red Blood Cells 0.1 % Sodium Level 141 mmol/L (136-145) Potassium Level 4.1 mmol/L (3.5-5.1) Chloride Level 109 mmol/L (98-107) Carbon Dioxide Level 27 mmol/L (20-31) Anion Gap 5 (5-15) Blood Urea Nitrogen 13 mg/dL (9-23) Creatinine 0.81 mg/dL (0.700-1.30) Glomerular Filtration Rate Calc 108 mL/min (>90) BUN/Creatinine Ratio 16.0 (10.0-20.0) Serum Glucose 108 mg/dL (74-106) Calcium Level 9.6 mg/dL (8.7-10.4) Magnesium Level 2.2 mg/dL (1.6-2.6) Total Bilirubin 0.6 mg/dL (0.2-1.0) Aspartate Amino Transferase (AST) 9 U/L (13-40) Alanine Aminotransferase (ALT) 12 U/L (7-40) Alkaline Phosphatase 74 U/L (46-116) Total Protein 6.3 g/dL (5.7-8.2) Albumin 3.9 g/dL (3.2-4.8) Lactic Acid Level 1.6 mmol/L (0.4-2.0) Test 04/23/24 13:10 Prothrombin Time 10.9 sec (9.3-11.8) Prothrombin Time INR 1.03 (0.9-1.15) Activated Partial Thromboplast Time 26.8 SEC (24.5-34.5) B-Type Natriuretic Peptide 175.00 pg/mL (0-100) Other Laboratory Tests 04/24/24 13:01 Brief Hx & Hospital Course: 48-year-old male w pmhx of HLD, tobacco abuse, history amphetamine abuse (quit 2010) brought in by EMS presents with a chief complaint of 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 he woke up at approximately 11:00 a.m. morning of admit and he noticed the chest pain. He describes it as unprovoked, intermittent, pressure-like in nature, and substernal without radiation. Associated symptoms include diaphoresis. He denies any alleviating or aggravating factors. The patient was brought to the emergency room via EMS. The patient was given sublingual nitroglycerin 0.4mg X 2 doses by EMS prior to arrival. Upon emergency room arrival, a twelve lead electrocardiogram revealed sinus bradycardia with significant S-T segment depression to anterolateral leads. Patient taken for c oronary angiogram left heart catheterization on 04/23/2024 which revealed no significant atherosclerotic plaquing. The patient's presentation likely secondary to pericarditis. colchicine and ibuprofen treatment started and patient feels significant improvement by next AM. VS stable, stable on tele sinus rhythm. plan patient to finish treatment outpatient follow-up as described plan. diagnosis: Chest pain ruled out WA; Acute pericarditis; Hyperlipidemia; Tobacco use; Obesity Visit and planning required 35 minutes discharge plan - Colchicine and Ibuprofen therapy for acute pericarditis (colchicine 0.6 bid for 3 months, ibuprofen 600 tid for 2 weeks then taper by PCP) - PRN norco 5mg tidprn as needed for pain - follow-up cardiology - follow-up PCP for hospitization review. - continue other home medications. Condition at Discharge: Good Final Diagnosis/Problems List pericarditis. ruled out ACS/CAD. Discharge Disposition: Home Discharge Instruct/Medications Diet: Regular Activity: No Restrictions, As Tolerated Follow Up/Referral: cardiology Discharge Statement: "Patient was advised to return to the ER or call 911 if any headaches, dizziness, shortness of breath, chest pain, abdominal pain, bleeding, fevers, or worsening of medical condition. Patient was counseled about treatment plan, medications, possible side effects, patientverbalized understanding. All questions were answered to the best of my ability. This discharge took greater then 30 minutes in planning, reviewing documentation, counseling the patient, and discussing with other team members." ASSESSMENT ASSESSMENT Hospital Course As above Assessment Chest pain w ruled out ACS and CAD; Acute pericarditis; Hyperlipidemia; Tobacco use; Obesity Date of Service: Apr 24, 2024 Billing Provider: ALE WILLETT MD Common Visit Codes: [id number]/[id number] DISCH DAY >30min ALE WILLETT MD Apr 24, 2024 17:04
[2024-04-25] MEDS ORDERED: COLCHICINE 0.6 MG CAP PO SCH (10:00)
--- NOTE | 2024-04-25 14:26 | ECG ---
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
== END 2024-04-24 19:05 | disposition home or self-care (01) | DRG 192 ==
LOC: ER 13:02 → EDBD 13:02 → TELE 14:51 → TELE-EAST 14:52
PROVIDERS: ADMIT Internal Medicine; ATTEND Student in an Organized Health Care Education/Training Program
PROC: 4A023N7 Measurement of Cardiac Sampling and Pressure, Left Heart, Percutaneous Approach (ICD-10-PCS; principal; 2024-04-23)
PROC: B211YZZ Fluoroscopy of Multiple Coronary Arteries using Other Contrast (ICD-10-PCS; 2024-04-23)
DX: I30.9 Acute pericarditis, unspecified (principal); E66.9 Obesity, unspecified; E78.5 Hyperlipidemia, unspecified; R61 Generalized hyperhidrosis; F32.A Depression, unspecified; F15.10 Other stimulant abuse, uncomplicated; Z87.891 Personal history of nicotine dependence; Z68.27 Body mass index [BMI] 27.0-27.9, adult; Z79.899 Other long term (current) drug therapy; R00.1 Bradycardia, unspecified
CPT/HCPCS: 36415; 71045; 80053; 80307; 83605; 83735; 83880; 84484; 85025; 85610; 85730; 93005; 93306; 93458; 99152; 99291; G0378; J2250; J2470; Q9967

== ENCOUNTER → 2024-06-11 | Outpatient (CLI) | payer MEDICAID ==
[~2024-06-11] MED LIST: COLC1CAP PO; HYDR1TAB97 PO; IBUP1TAB5 PO; PANT40TA2 PO
--- NOTE | 2024-06-12 12:58 | DVHSR ---
APPROVED REPORT EXAM: Two-dimensional and M-mode echocardiogram with Doppler and color Doppler. DIMENSIONS LVDd4.9 (3.8-5.7cm)LA (2D)4.8 (1.9-4.0cm)Aortic Root3.5 (2.0-3.7cm) LVDs3.0 (2.5-4.0cm)LA (MM) (1.9-4.0cm)Aortic Cusp Exc2.1 (1.5-2.0cm) EF (%) 68.0 (55-70%)Rt. Atrium3.6 (1.9-4.0cm)Asc. Aorta cm IVSd1.0 (0.7-1.1cm)RV (D)3.1 (1.8-2.4cm) PWd1.4 (0.7-1.1cm) Mitral Valve MitralMitral Stenosis E wave0.72m/sMV Mean GR.mmHg A wave0.82m/sMV Peak GR.mmHg E/A ratio0.92D MVAcm2 DECEL [id number] 1/2 [place] Aortic Valve Aortic ValveAortic Stenosis V11.07m/Tal Mean GR.4mmHg V21.33m/Tal Peak GR.7mmHg Pulmonic Valve V20.62m/s Tricuspid Valve TR Velocity1.76m/s [id number] LEFT VENTRICLE The Ejection Fraction is >55%. ATRIA The left atrium is mildly dilated. The right atrium size is normal. MITRAL VALVE Mitral annular calcification is mild. There is no mitral valve regurgitation noted. PULMONIC VALVE The pulmonic valve is not well visualized. There is trace to mild pulmonic valvular regurgitation. TRICUSPID VALVE The tricuspid valve is grossly normal. There is trace tricuspid regurgitation. AORTIC VALVE The aortic valve opens well. No aortic regurgitation is present. GREAT VESSELS The aortic root is normal size. PERICARDIAL EFFUSION There is no pericardial effusion. Other Information Technically limited study due to body habitus. Conclusion EF >55% MILD MAC LAE
== END | disposition home or self-care (01) ==
LOC: Rad HDHVI 14:02
PROVIDERS: ATTEND Internal Medicine Cardiovascular Disease
DX: I08.8 Other rheumatic multiple valve diseases (principal); R07.89 Other chest pain
CPT/HCPCS: 93306

== ENCOUNTER → 2024-10-09 | Outpatient (CLI) | payer MEDICAID ==
--- NOTE | 2024-10-11 08:46 | DVHSR ---
APPROVED REPORT EXAM: Two-dimensional and M-mode echocardiogram with Doppler and color Doppler. DIMENSIONS LVDd4.7 (3.8-5.7cm)LA (2D)3.9 (1.9-4.0cm)Aortic Root3.2 (2.0-3.7cm) LVDs2.8 (2.5-4.0cm)LA (MM) (1.9-4.0cm)Aortic Cusp Exc2.0 (1.5-2.0cm) EF (%) 67.0 (55-70%)Rt. Atrium3.6 (1.9-4.0cm)Asc. Aorta3.0 cm IVSd1.3 (0.7-1.1cm)RV (D)4.1 (1.8-2.4cm) PWd1.2 (0.7-1.1cm) Mitral Valve MitralMitral Stenosis E wave0.93m/sMV Mean GR.mmHg A wave0.88m/sMV Peak GR.mmHg E/A ratio1.12D MVAcm2 DECEL [id number] 1/2 [place] Aortic Valve Aortic ValveAortic Stenosis V11.28m/Tal Mean GR.mmHg V21.39m/Tal Peak GR.8mmHg LVOT Diameter2.3 (1.8-2.4cm)Doppler AVA3.82cm2 Pulmonic Valve V21.06m/s Tricuspid Valve TR Velocity1.96m/s [id number] LEFT VENTRICLE The left ventricle is normal size. There is mild left ventricular hypertrophy. The left ventricle is normal in structure and function. The Ejection Fraction is within normal limits. RIGHT VENTRICLE The right ventricle is normal size. ATRIA The left atrial size is normal. The right atrium size is normal. The interatrial septum is intact with no evidence for an atrial septal defect. MITRAL VALVE The mitral valve is normal in structure and function. Mitral annular calcification is mild. There is no mitral valve regurgitation noted. Mitral regurgitation is trace. PULMONIC VALVE The pulmonic valve is not well visualized. TRICUSPID VALVE The tricuspid valve is grossly normal. There is trace tricuspid regurgitation. AORTIC VALVE The aortic valve opens well. No aortic regurgitation is present. GREAT VESSELS The aortic root is normal size. PERICARDIAL EFFUSION There is no pericardial effusion. Other Information Quality : Technically LimitedRhythm : Technically limited study due to body habitus and smoking. Conclusion EF >55% LVH MILD MAC
== END | disposition home or self-care (01) ==
LOC: Rad HDHVI 15:34
PROVIDERS: ATTEND Internal Medicine Cardiovascular Disease
DX: I34.81 Nonrheumatic mitral (valve) annulus calcification (principal); I11.9 Hypertensive heart disease without heart failure; R00.2 Palpitations
CPT/HCPCS: 93306

== ENCOUNTER → 2024-10-14 | Outpatient (CLI) | payer MEDICAID ==
[~2024-10-14] VITALS: Ht 185.4 cm; Wt 89.4 kg
[~2024-10-14] MED LIST changes: +ADENOSINE 75 MG in GIVE UN-DILUTED 0 ML IV ONE; +ADENOSINE 90 MG/30 ML INJ IV ONE
== END | disposition home or self-care (01) ==
LOC: Rad HDHVI 13:48
PROVIDERS: ATTEND Internal Medicine Cardiovascular Disease
DX: I49.1 Atrial premature depolarization (principal); R07.89 Other chest pain; I11.9 Hypertensive heart disease without heart failure; I31.9 Disease of pericardium, unspecified; I25.2 Old myocardial infarction; I73.9 Peripheral vascular disease, unspecified; R00.2 Palpitations; R06.02 Shortness of breath; R94.31 Abnormal electrocardiogram [ECG] [EKG]; E78.00 Pure hypercholesterolemia, unspecified; F17.210 Nicotine dependence, cigarettes, uncomplicated
CPT/HCPCS: 78452; 93017; A9500; J0153; 93005; 96374; 96375

== ENCOUNTER 2024-11-18 03:26 | Inpatient (IN) | payer MEDICAID ==
[2024-11-18] VITALS (8 sets, daily range): BP systolic 127–147; BP diastolic 64–80; PULSE 51–82; RESP 13–17; TEMP 97.5–98.1; O2SAT 95–100
[~2024-11-18] VITALS: Ht 180.3 cm; Wt 93.1 kg
[~2024-11-18 03:26] MED LIST changes: -ADENOSINE 75 MG in GIVE UN-DILUTED 0 ML IV ONE; -ADENOSINE 90 MG/30 ML INJ IV ONE
--- NOTE | 2024-11-18 03:35 | ED.PDOC ---
HPI Comments 49-year-old male with a history of dyslipidemia, previous SD and GERD brought in by EMS from home complaining of chest pain for the past 2 hours. Patient localizes the pain to the retrosternal area, states it started while he was sitting at rest watching TV, states it is constant, pressure-like, nonradiating, no particular exacerbating or alleviating factors. He denies any associated shortness of breath, nausea, vomiting, diaphoresis or edema. Time Seen by MD: 03:29 Reviewed Notes: Nurses Notes, Signal System Testing Maintainer Notes Allergies: Coded Allergies: NO KNOWN ALLERGIES (Unverified , 04/23/24) Home Meds Active Scripts Hydrocodone-Acetaminophen (Hydrocodone/Acetaminophen 5-325 mg) 1 Tab Tab, 1 TAB PO TIDPRN PRN for 7 Days, #21 TAB Prov:ALE WILLETT MD 04/24/24 Pantoprazole Sodium Sesquihydr (Protonix) 40 Mg Tab, 40 MG PO DAILY for 30 Days, #30 TAB Prov:ALE WILLETT MD 04/24/24 Ibuprofen Micronized (Ibuprofen) 600 Mg Tab, 600 MG PO TID for 14 Days, #42 TAB Prov:ALE WILLETT MD 04/24/24 Colchicine (Colchicine) 0.6 Mg Cap, 0.6 MG PO BID for 30 Days, #60 CAP 2 Refills Prov:ALE WILLETT MD 04/24/24 Information Source: Patient, Emergency Med Personnel Mode of Arrival: EMS Past Medical History PAST MEDICAL HISTORY: High Lipids, SD Surgical History: Denies all surgeries Family History Family History: Reviewed,noncontributory to illness Social History Smoker: Cigarettes Alcohol: Denies ETOH Use Drugs: Denies Drug Use Lives In: Home All Other Systems: Reviewed and Negative (Comprehensive systems review obtained and negative except for what is stated in the HPI.) Physical Exam General Appearance: Mild Distress HEENT: Other (Pupils and face symmetric. Moist mucous membranes.) Neck: Full Range of Motion, Normal Inspection Respiratory: Lungs Clear, No Accessory Muscle Use, No Respiratory Distress, Normal Breath Sounds Cardiovascular: No Edema, No JVD, Regular Rate/Rhythm Breast Exam: Deferred Gastrointestinal: Non Tender, Soft Genitalia: Deferred Pelvic: Deferred Rectal: Deferred Extremities: Normal inspection, Normal range of motion, Non-tender, No pedal edema Neurologic: Alert (Oriented x4), Normal Affect, Normal Mood, Other (Ambulatory) Cerebellar Function: NOT DONE Reflexes: NOT DONE Skin: Dry, Normal Color, Warm Lymphatic: NOT DONE EKG EKG : Comments Sinus rhythm, rate 59, normal intervals, normal axis, LVH with secondary repolarization abnormality, old anteroseptal infarct, inferior and lateral T- wave inversion with ST depression Was a procedure done? Was a procedure done?: No CP Differential Dx Differential Diagnosis: Angina, SD, Pulmonary Embolus Differential Diagnosis: CHF Differential Diagnosis: Aortic dissection, Chest Wall Pain, Esophageal reflux/spasm, Gastritis, Pericarditis, Pneumonia X-Ray, Labs, Meds, VS Vital Signs Date Time Temp Pulse Resp B/P (MAP) Pulse Ox O2 Delivery O2 Flow Rate FiO2 11/18/24 05:11 145/82 11/18/24 04:50 59 11/18/24 04:50 142/81 11/18/24 04:12 55 20 125/63 11/18/24 03:51 100/49 11/18/24 03:34 59 11/18/24 03:31 98.7 68 22 142/84 (103) 100 98.7 Lab Test 11/18/24 05:02 11/18/24 03:51 Range/Units Troponin I High Sensitivity Pending 40 </=54 ng/L White Blood Count 14.2 H 4.4-10.8 10^3/uL Red Blood Count 5.18 4.5-5.90 10^6/uL Hemoglobin 15.7 13.5-17.5 g/dL Hematocrit 45.8 41.0-53.0 % Mean Corpuscular Volume 88.5 80.0-100.0 fL Mean Corpuscular Hemoglobin 30.3 28.0-32.0 pg Mean Corpuscular Hemoglobin Concent 34.3 32.0-36.0 g/dL Red Cell Distribution Width 13.8 11.8-14.3 % Platelet Count 319 140-450 10^3/uL Mean Platelet Volume 6.8 L 6.9-10.8 fL Neutrophils (%) (Auto) 71.5 37.0-80.0 % Lymphocytes (%) (Auto) 21.4 10.0-50.0 % Monocytes (%) (Auto) 4.7 0.0-12.0 % Eosinophils (%) (Auto) 1.2 0.0-7.0 % Basophils (%) (Auto) 1.2 0.0-2.0 % Neutrophils # (Auto) 10.2 H 1.6-8.6 10 ^3/uL Lymphocytes # (Auto) 3.1 0.4-5.4 10 ^3/uL Monocytes # (Auto) 0.7 0-1.3 10 ^3/uL Eosinophils # (Auto) 0.2 0-0.8 10 ^3/uL Basophils # (Auto) 0.2 0-0.2 10 ^3/uL Nucleated Red Blood Cells 0.0 % Sodium Level 141 136-145 mmol/L Potassium Level 3.8 3.5-5.1 mmol/L Chloride Level 108 H 98-107 mmol/L Carbon Dioxide Level 25 20-31 mmol/L Anion Gap 8 5-15 Blood Urea Nitrogen 14 9-23 mg/dL Creatinine 1.05 0.700-1.30 mg/dL Glomerular Filtration Rate Calc 86 >90 mL/min BUN/Creatinine Ratio 13.3 10.0-20.0 Serum Glucose 181 H 74-106 mg/dL Calcium Level 9.7 8.7-10.4 mg/dL Total Bilirubin 0.2 0.2-1.0 mg/dL Aspartate Amino Transferase (AST) 10 L 13-40 U/L Alanine Aminotransferase (ALT) 10 7-40 U/L Alkaline Phosphatase 72 46-116 U/L B-Type Natriuretic Peptide 164.50 0-100 pg/mL Total Protein 6.9 5.7-8.2 g/dL Albumin 4.3 3.2-4.8 g/dL Current Medications Medications (Trade) Dose Ordered Sig/Michelle Route Start Time Stop Time Status Last Admin Nitroglycerin (Nitrodur 0.4MG/ Hr) 1 patch ONCE ONCE TD 11/18/24 03:30 11/18/24 03:31 DC 11/18/24 03:51 Morphine Sulfate 4 mg ONCE ONCE IV 11/18/24 03:30 11/18/24 03:31 DC 11/18/24 04:12 Ondansetron HCl (Zofran) 4 mg ONCE ONCE IV 11/18/24 03:30 11/18/24 03:31 DC 11/18/24 04:13 Sodium Chloride 1,000 ml @ 1,000 mls/hr Q1H ONCE IV 11/18/24 04:00 11/18/24 04:59 DC 11/18/24 03:55 Fentanyl Citrate 25 mcg ONCE ONCE IV 11/18/24 04:45 11/18/24 04:46 DC 11/18/24 04:50 Fentanyl Citrate 25 mcg ONCE ONCE IV 11/18/24 05:00 11/18/24 05:01 DC 11/18/24 05:11 PROCEDURE(s): CXRP - CHEST PORTABLE REASON: cp ORDER NUMBER(s): [id number], ACCESSION NUMBER(s): [id number] EXAM: XR Chest, 1 View CLINICAL INDICATION: cp TECHNIQUE: Frontal view of the chest. COMPARISON: XY CHEST PORTABLE on DOS: 04/23/24 FINDINGS: LUNGS AND PLEURAL SPACES: Unremarkable. No consolidation. No pneumothorax. HEART: Cardiomegaly without overt failure. MEDIASTINUM: Unremarkable. Normal mediastinal contour. BONES/JOINTS: Unremarkable. No acute fracture. OTHER FINDINGS: . IMPRESSION: Cardiomegaly without overt failure. X-Ray, Labs, Meds, VS Comment 49 year old male with a history of SD and dyslipidemia and heavy smoking history brought in by EMS from home complaining of chest pain for the last 2 hours Vitals remarkable for BP 142/84, respiratory rate 22 Exam remarkable for moderate distress Rhythm strip independently interpreted by me: Sinus rhythm, rate 59, no ectopy. Chest x-ray IMPRESSION: Cardiomegaly without overt failure. CBC remarkable for WBC 14.2, metabolic panel unremarkable, BNP 164.5, 1st troponin 40 Patient treated with the following in the ED: (was given aspirin 325 mg p.o. by EMS) Nitro patch 0.4 mg to chest wall, morphine 4 mg IV, Zofran 4 mg IV EKG was sent to Dr. Benitez on-call for STEMI. He did not feel the EKG was consistent with STEMI and recommended medical management. On re-evaluation, patient states pain is persistent, so fentanyl 25 mg IV was ordered Plan is to admit the patient for Cardiology evaluation. Time of 1ST Reevaluation: 05:37 Reevaluation 1ST: Improved Patient Education/Counseling: Diagnosis, Treatment, Need For Follow Up Family Education/Counseling: No Family Present Departure 1 Departure Time of Disposition: 05:37 Impression: Primary Impression: Unstable angina Disposition: 09 ADMITTED INPATIENT Admit to: Tele Condition: Guarded Critical Care Note Critical Care Time?: No Stability Stability form required: No Heart Score Heart Score: Heart Score Response (Comments) Value History Highly Suspicious [address]-Deviation 2 Age 45-64 1 Risk Factors >3 or Hx ASHD 2 Troponin Normal limit 0 Total 7 JUNG MARTINEZ MD November 18, 2024 03:35
[2024-11-18] MEDS: NITROGLYCERIN 0.4MG/HR TOPICAL PATCH TD ONE (03:51)
[2024-11-18] MEDS: ASPirin 325 MG TAB PO ONE (03:52)
[2024-11-18] MEDS: SODIUM CHLORIDE 0.9% 1,000 ML IV ONE (03:55)
[2024-11-18 04:04] LABS: Basophils # (auto) 0.2 10 ^3/uL (0-0.2); Basophils % (auto) 1.2 % (0.0-2.0); Eosinophils # (auto) 0.2 10 ^3/uL (0-0.8); Eosinophils % (auto) 1.2 % (0.0-7.0); Hematocrit 45.8 % (41.0-53.0); Hemoglobin 15.7 g/dL (13.5-17.5); Lymphocytes # (auto) 3.1 10 ^3/uL (0.4-5.4); Lymphocytes % (auto) 21.4 % (10.0-50.0); Mean Corpuscular Hemoglobin 30.3 pg (28.0-32.0); Mean Corpuscular Hgb Conc. 34.3 g/dL (32.0-36.0); Mean Corpuscular Volume 88.5 fL (80.0-100.0); Monocytes # (auto) 0.7 10 ^3/uL (0-1.3); Monocytes % (auto) 4.7 % (0.0-12.0); Neutrophils # (auto) 10.2 10 ^3/uL (1.6-8.6); Neutrophils % (auto) 71.5 % (37.0-80.0); Platelet Count (auto) 319 10^3/uL (140-450); Red Blood Cells 5.18 10^6/uL (4.5-5.90); Red Cell Distribution Width 13.8 % (11.8-14.3); White Blood Cell 14.2 10^3/uL (4.4-10.8)
[2024-11-18] MEDS: MORPHINE SULFATE 4 MG/ML SYR/VIAL IV ONE (04:12)
[2024-11-18] MEDS: ONDANSETRON HCL 4 MG/2 ML VIAL IV ONE (04:13)
[2024-11-18 04:21] LABS: Alanine Aminotransferase 10 U/L (7-40); Albumin 4.3 g/dL (3.2-4.8); Alkaline Phosphatase 72 U/L (46-116); Anion Gap 8 (5-15); BUN/Creatinine Ratio 13.3 (10.0-20.0); Blood Urea Nitrogen 14 mg/dL (9-23); Calcium 9.7 mg/dL (8.7-10.4); Carbon Dioxide 25 mmol/L (20-31); Potassium 3.8 mmol/L (3.5-5.1); Sodium 141 mmol/L (136-145); Total Protein 6.9 g/dL (5.7-8.2)
[2024-11-18 04:36] LABS: Aspartate Aminotransferase 10 U/L (13-40); Bilirubin, Total 0.2 mg/dL (0.2-1.0); Chloride 108 mmol/L (98-107); Glucose 181 mg/dL (74-106)
[2024-11-18] MEDS: fentaNYL CITRATE 100 MCG/2 ML VL IV ONE ×2 (04:50→05:11)
--- NOTE | 2024-11-18 05:12 | DVH ---
EXAM: XR Chest, 1 View CLINICAL INDICATION: cp TECHNIQUE: Frontal view of the chest. COMPARISON: XY CHEST PORTABLE on DOS: 04/23/24 FINDINGS: LUNGS AND PLEURAL SPACES: Unremarkable. No consolidation. No pneumothorax. HEART: Cardiomegaly without overt failure. MEDIASTINUM: Unremarkable. Normal mediastinal contour. BONES/JOINTS: Unremarkable. No acute fracture. OTHER FINDINGS: . IMPRESSION: Cardiomegaly without overt failure.
[2024-11-18] MEDS: HYDROmorphone HCL 2 MG/ML VL/or syr IV ONE (06:11)
--- NOTE | 2024-11-18 06:26 | ECG ---
[facility] Test Date: 2024-11-18 Test Time: 03:34:00 Pat Name: GERRY ALLEN Department: ED Room: Gender: M Chair Car Attendant: ANEESH : 1975 Requested By: JUNG CROWELL Order Number: [id number] Reading MD: Measurements Intervals [place] Rate: 59 P: 77 PA: 143 QRS: 76 QRSD: 83 T: 213 QT: 444 QTc: 440 Interpretive Statements Sinus rhythm LVH with secondary repolarization abnormality Anterior Q waves, possibly due to LVH ST depression, consider ischemia, diffuse lds Baseline wander in lead(s) II,III,aVF Please click the below link to view image of tracing.
[2024-11-18 06:34] LABS: Urine Bacteria None Seen /hpf (None Seen)
[2024-11-18 06:57] LABS: Urine Blood Negative /uL (Negative); Urine Clarity Clear (Clear); Urine Color Yellow (Yellow); Urine Mucus FEW (None Seen); Urine Protein, UAD TRACE (Negative); Urine Specific Gravity 1.027 (1.001-1.035); Urine Squamous Epithelial Cell None Seen /hpf (<5); Urine Urobilinogen Normal (Negative); Urine WBC 2 /HPF (0-3)
--- NOTE | 2024-11-18 08:05 | DVHHP2 ---
History of Present Illness Reason for Visit: Chest Pain History of Present Illness Renard Rogers is a 49-year-old male with past medical history of pericarditis, GERD, and hyperlipidemia, who came in with complaints of chest pain. Patient states the pain is substernal, squeezing pain. Began last night about 2300 when he was laying in bed watching TV. He attempted to try and sleep but was unable to due to the pain so he came to the hospital. Patient states he was seen here last April with an angiogram completed. He follows with Dr. Gardner as an outpatient and completed a stress test a couple weeks ago that came back normal according to the patient. Cardiovascular: hyperipidemia GI: GERD Past Surgical History: None Smoke: <1 pack per day ALCOHOL: none Drugs: None Lives: with Family Domestic Violence: Neg Review of Systems Constitutional: No: Fever, Chills, Sweats, Weakness, Malaise, Other Eyes: No: Pain, Vision change, Conjunctivae inflammation, Eyelid inflammation, Other, Redness ENT: No: Ear pain, Ear discharge, Nose pain, Nose discharge, Nose congestion, Mouth pain, Mouth swelling, Throat pain, Throat swelling, Other Respiratory: No: Cough, Dry, Shortness of breath, SOB with excertion, Wheezing, Hemoptysis, Pleuritic Pain, Sputum, Wheezing, Other Cardiovascular: Chest Pain; No: Palpitations, Orthopnea, Paroxysmal Noc. Dyspnea, Edema, Lt Headedness, Other Gastrointestinal: No: Nausea, Vomiting, Abdominal Pain, Diarrhea, Constipation, Melena, Hematochezia, Other Genitourinary: No Dysuria, No Frequency, No Incontinence, No Hematuria, No Retention, No Other Musculoskeletal: No: other, neck pain, shoulder pain, arm pain, back pain, hand pain, leg pain, foot pain Skin: No: Rash, Lesions, Jaundice, Bruising, Other Neurological: No: Weakness, Numbness, Incoordination, Change in speech, Confusion, Seizures, Other Allergies: Coded Allergies: NO KNOWN ALLERGIES (Unverified , 04/23/24) Exam Vital Signs Vital Signs Date Time Temp Pulse Resp B/P (MAP) Pulse Ox O2 Delivery O2 Flow Rate FiO2 11/18/24 07:30 97.5 69 16 126/73 (90) 97 97.5 11/18/24 07:20 Nasal Cannula* 2 28 General Appearance: Alert, Oriented X3, Cooperative, No acute distress HEENT: Atraumatic Respiratory: Clear to auscultation, Normal air movement Cardiovascular: Regular rate, Normal S1, Normal S2, No murmurs Abdominal: Normal bowel sounds, Soft, No tenderness, No hepatospenomegaly Extremities: No clubbing, No edema, Normal pulses, No tenderness/swelling Skin: No rashes, No breakdown, No significant lesion Neuro: Normal gait, Normal speech, Strength at 5/5 X4 ext, Normal tone Psych/Mental Status: Mental status NL, Mood NL Labs/Xrays Labs Test 11/18/24 06:44 11/18/24 06:20 11/18/24 03:51 Range/Units Troponin I High Sensitivity 40 </=54 ng/L Urine Color Yellow Yellow Urine Clarity Clear Clear Urine pH 6.0 5.0-9.0 Urine Specific [place] 1.027 1.001-1.035 Urine Protein Trace H Negative Urine Ketones Trace Negative Urine Blood Negative Negative /uL Urine Nitrite Negative Negative Urine Bilirubin Negative Negative Urine Urobilinogen Normal Negative mg/dL Urine Leukocyte Esterase Negative Negative /uL Urine RBC 2 0 - 3 /hpf Urine Microscopic WBC 2 0-3 /HPF Urine Squamous Epithelial Cells None seen <5 /hpf Urine Bacteria None seen None Seen /hpf Urine Mucus Few None Seen Urine Glucose 3+ H Normal mg/dL White Blood Count 14.2 H 4.4-10.8 10^3/uL Red Blood Count 5.18 4.5-5.90 10^6/uL Hemoglobin 15.7 13.5-17.5 g/dL Hematocrit 45.8 41.0-53.0 % Mean Corpuscular Volume 88.5 80.0-100.0 fL Mean Corpuscular Hemoglobin 30.3 28.0-32.0 pg Mean Corpuscular Hemoglobin Concent 34.3 32.0-36.0 g/dL Red Cell Distribution Width 13.8 11.8-14.3 % Platelet Count 319 140-450 10^3/uL Mean Platelet Volume 6.8 L 6.9-10.8 fL Neutrophils (%) (Auto) 71.5 37.0-80.0 % Lymphocytes (%) (Auto) 21.4 10.0-50.0 % Monocytes (%) (Auto) 4.7 0.0-12.0 % Eosinophils (%) (Auto) 1.2 0.0-7.0 % Basophils (%) (Auto) 1.2 0.0-2.0 % Neutrophils # (Auto) 10.2 H 1.6-8.6 10 ^3/uL Lymphocytes # (Auto) 3.1 0.4-5.4 10 ^3/uL Monocytes # (Auto) 0.7 0-1.3 10 ^3/uL Eosinophils # (Auto) 0.2 0-0.8 10 ^3/uL Basophils # (Auto) 0.2 0-0.2 10 ^3/uL Nucleated Red Blood Cells 0.0 % D-Dimer, Quantitative < 0.19 0.0-0.49 mg/L FEU Sodium Level 141 136-145 mmol/L Potassium Level 3.8 3.5-5.1 mmol/L Chloride Level 108 H 98-107 mmol/L Carbon Dioxide Level 25 20-31 mmol/L Anion Gap 8 5-15 Blood Urea Nitrogen 14 9-23 mg/dL Creatinine 1.05 0.700-1.30 mg/dL Glomerular Filtration Rate Calc 86 >90 mL/min BUN/Creatinine Ratio 13.3 10.0-20.0 Serum Glucose 181 H 74-106 mg/dL Calcium Level 9.7 8.7-10.4 mg/dL Total Bilirubin 0.2 0.2-1.0 mg/dL Aspartate Amino Transferase (AST) 10 L 13-40 U/L Alanine Aminotransferase (ALT) 10 7-40 U/L Alkaline Phosphatase 72 46-116 U/L B-Type Natriuretic Peptide 164.50 0-100 pg/mL Total Protein 6.9 5.7-8.2 g/dL Albumin 4.3 3.2-4.8 g/dL EXAM: XR Chest, 1 View FINDINGS: LUNGS AND PLEURAL SPACES: Unremarkable. No consolidation. No pneumothorax. HEART: Cardiomegaly without overt failure. MEDIASTINUM: Unremarkable. Normal mediastinal contour. BONES/JOINTS: Unremarkable. No acute fracture. OTHER FINDINGS: . IMPRESSION: Cardiomegaly without overt failure. Assessment/Plan Assessment/Plan Assessment: Unstable angina, R/O ACS, Hyperglycemia, Cardiomegaly, Hyperlipidemia, GERD, Plan: Admit to Tele, Cardiology consult, Lipid panel, A1c, TSH, Home medications reconciled, Plan discussed with: Patient My Orders Orders - SHANNON CHRISTENSEN Procedure Category Date Status Time Admit ADMIT 11/18/24 Verified 08:01 Code Status CODE 11/18/24 Verified 08:01 2 Gm Sodium Diet DIET 11/18/24 Verified Breakfast Sodium Chloride Lock PHA 11/18/24 Verified (Saline Lock Ns) 14:00 Hydrocodone-Acet PHA 11/18/24 Verified 5/325mg Tab ([place] 08:15 Ondansetron Hcl PHA 11/18/24 Verified (Zofran) 08:15 Docusate Sodium PHA 11/18/24 Verified Capsule (Colace 08:15 Complete Blood Count LAB 11/19/24 Verified 04:00 Comprehensive LAB 11/19/24 Verified Metabolic Panel 04:00 Condition: Serious ALIA 11/18/24 Verified 08:01 Acetaminophen Tablet PHA 11/18/24 Verified (Tylenol Tablet) 08:15 Nitroglycerin PHA 11/18/24 Verified Sublingual (Ntrostat 08:15 Morphine Sulfate PHA 11/18/24 Verified Injection 08:15 Stat Ekg For Chest [facility] 11/18/24 Verified Pain 08:01 Notify Md Of Changes [facility] 11/18/24 Verified From Base 08:01 Cow Tester For [facility] 11/18/24 Verified 24 Hours 08:01 Emergency Dysrhythmia [facility] 11/18/24 Verified Protocol 08:01 Rhythm Strips Once [facility] 11/18/24 Verified Every Shift 08:01 Oxygen By Nasal RT 11/18/24 Verified Cannula 08:01 * Cardiology Consult CONS 11/18/24 Verified 08:01 Date of Service: November 18, 2024 Billing Provider: SHANNON CHRISTENSEN Common Visit Codes: [id number] INP/OBS CARE (MOD) SHANNON CHRISTENSEN November 18, 2024 08:05
[2024-11-18] MEDS ORDERED: ONDANSETRON HCL 4 MG/2 ML VIAL IV PRN (08:15)
[2024-11-18] MEDS ORDERED: ACETAMINOPHEN 325 MG TAB PO PRN (08:15)
[2024-11-18] MEDS ORDERED: NITROGLYCERIN 0.4 MG SL TAB SL PRN (08:15)
[2024-11-18] MEDS ORDERED: DOCUSATE SOD 100 MG CAP PO PRN (08:15)
[2024-11-18] MEDS ORDERED: MORPHINE SULFATE INJ 2 MG/ml SYRG IV PRN (08:15)
[2024-11-18 08:34] LABS: Amphetamine Screen, Urine Neg (NEGATIVE); Barbiturate Scree,Urine Neg (NEGATIVE); Benzodiazephine Screen, Urine Neg (NEGATIVE); Cannabinoid Screen, Urine Neg (NEGATIVE); Cocaine Screen, Urine Neg (NEGATIVE); Opiate Scree,Urine Pos (NEGATIVE); Phencyclidine Screen, Urine Neg (NEGATIVE)
[2024-11-18] MEDS: HYDROcodone-ACET 5/325MG TAB PO PRN (09:46)
[2024-11-18 10:03] LABS: Cholesterol 215 mg/dL (< 200); HDL Cholesterol 37 mg/dL (40-59); LDL Cholesterol 157 mg/dL (< 100); Triglycerides 172 mg/dL (< 150)
[2024-11-18] MEDS: PANTOPRAZOLE 40 MG TAB PO SCH (10:06)
--- NOTE | 2024-11-18 13:56 | DVHPN2 ---
Progress Note - Dictate Date Seen: November 18, 2024 Medical Necessity Reason Pt with a Central, PICC or Fol: No Subjective PT WITH PLEURITIC CP WITH DIFFUSE WHEEZING HX OF COPD HX OF PERICARDITIS NL CORONARIES TROPONIN NEGATIVE ECG NO ACUTE CHANGES vital signs Vital Sign Date Time Temp Pulse Resp B/P (MAP) Pulse Ox O2 Delivery O2 Flow Rate FiO2 11/18/24 12:00 68 20 146/84 (104) 96 11/18/24 10:36 97.5 97.5 11/18/24 07:20 Nasal Cannula* 2 28 Total Intake and Output 11/17/24 11/17/24 11/18/24 15:00 23:00 07:00 Intake Total 1000 ml Balance 1000 ml medications Current Medications Medications Dose Ordered Sig/Michelle Route Start Time Stop Time Status Last Admin Dose Admin Sodium Chloride 10 ml Q8HR IV 11/18/24 14:00 Acetaminophen/ Hydrocodone Bitart 1 tab Q4HP PRN PO 11/18/24 08:15 11/18/24 09:46 1 TAB Ondansetron HCl 4 mg Q4HP PRN IV 11/18/24 08:15 Docusate Sodium 100 mg BIDPRN PRN PO 11/18/24 08:15 Acetaminophen 650 mg Q6HP PRN PO 11/18/24 08:15 Nitroglycerin 0.4 mg Q5MINP PRN SL 11/18/24 08:15 Morphine Sulfate 2 mg Q30M PRN IV 11/18/24 08:15 Pantoprazole Sodium 40 mg DAILY PO 11/18/24 10:00 11/18/24 10:06 40 MG laboratory and microbiology Laboratory Tests 11/18/24 03:51 Test 11/18/24 03:51 Range/Units Serum Glucose 181 H 74-106 mg/dL Problem List PLEURITIC CP WITH DIFFUSE WHEEZING HX OF COPD HX OF PERICARDITIS NL CORONARIES TROPONIN NEGATIVE ECG NO ACUTE CHANGES Assessment/Plan ABX INHALERS STEROIDS ALL OF COPD EXACERBATION Plan discussed with: Patient REE VERA MD November 18, 2024 13:56
--- NOTE | 2024-11-18 14:09 | DVHPN2 ---
Progress Note Date Seen: November 18, 2024 Medical Necessity Reason Pt with a Central, PICC or Fol: No Subjective Patient reports: No new complaints Review of Systems: HEENT:Normal, CVS:Normal, RESPIRATORY:Normal, GI:Normal, :Normal, MSK:Normal, NEURO:Normal Objective vital signs Vital Sign Date Time Temp Pulse Resp B/P (MAP) Pulse Ox O2 Delivery O2 Flow Rate FiO2 11/18/24 12:00 68 20 146/84 (104) 96 11/18/24 10:36 97.5 97.5 11/18/24 07:20 Nasal Cannula* 2 28 Total Intake and Output 11/17/24 11/17/24 11/18/24 15:00 23:00 07:00 Intake Total 1000 ml Balance 1000 ml medications Current Medications Medications Dose Ordered Sig/Michelle Route Start Time Stop Time Status Last Admin Dose Admin Sodium Chloride 10 ml Q8HR IV 11/18/24 14:00 Acetaminophen/ Hydrocodone Bitart 1 tab Q4HP PRN PO 11/18/24 08:15 11/18/24 09:46 1 TAB Ondansetron HCl 4 mg Q4HP PRN IV 11/18/24 08:15 Docusate Sodium 100 mg BIDPRN PRN PO 11/18/24 08:15 Acetaminophen 650 mg Q6HP PRN PO 11/18/24 08:15 Nitroglycerin 0.4 mg Q5MINP PRN SL 11/18/24 08:15 Morphine Sulfate 2 mg Q30M PRN IV 11/18/24 08:15 Pantoprazole Sodium 40 mg DAILY PO 11/18/24 10:00 11/18/24 10:06 40 MG Examination: GENERAL:Normal, HEENT:Normal, NECK:Normal, LUNGS:Normal, LUNGS:Abnormal (bilateral rhonchi), CVS:Normal, ABDOMEN:Normal, MSK:Normal, SKIN:Normal, NEURO:Normal, :Normal laboratory and microbiology Laboratory Tests 11/18/24 03:51 Test 11/18/24 03:51 Range/Units Serum Glucose 181 H 74-106 mg/dL Problem List/Assessment/Plan Problem List/Assessment/Plan #1 copd with exacerbation: cont meds #2 ?pneumonia - gram positive/neg ?sepsis: iv doxy #3 tobacco abuse: advised to quit, refused nicotine patch- time spent 11 mins #4 chest pain ?gerd #5 hyperlipidemia #6 h/o pericarditis advance care planning- full code- time spent 18 mins Plan discussed with: Patient Date of Service: November 18, 2024 Billing Provider: BORIS GAMINO MD Common Visit Codes: [id number] INP/OBS CARE(HIGH) Secondary Visit Codes: [id number] CHNG SMOKING >10MIN, 67628-BUDNZEUX CARE PLAN 30 MINUTES BORIS GAMINO MD November 18, 2024 14:09
[2024-11-18] MEDS: methylPREDNISolone SOD SUCC 40 MG/ML VL IV ONE (14:15)
[2024-11-18] MEDS: SODIUM CHLOR 0.9% PF (SALINE LOCK) 10ML VIAL/SYR IV SCH (14:22)
[2024-11-18] MEDS: DOXYCYCLINE 100MG/100ML 100 ML IV SCH (15:14)
[2024-11-18] MEDS: IPRATROPIUM BROM 0.5 MG/2.5ML INH SOL NEB SCH (20:07)
[2024-11-18] MEDS: ALBUTEROL SULF 2.5 MG/0.5ML(0.5%) NEB SOLN NEB SCH (20:07)
[2024-11-18] MEDS ORDERED: methylPREDNISolone SOD SUCC 40 MG/ML VL IV SCH (22:00)
--- NOTE | 2024-11-19 10:17 | DVHDS ---
DATE OF DISCHARGE: 11/18/2024 The patient left against medical advice, 11/18/2024. HISTORY OF PRESENT ILLNESS: The patient is a 49-year-old gentleman who was admitted with history of chest discomfort and wheezing and has a history of GERD, previous pericarditis, hyperlipidemia, and tobacco abuse. HOSPITAL COURSE: The patient had a chest x-ray that showed evidence of cardiomegaly. He was seen in Cardiology consult by Dr. Gardner. LDL was elevated at 157. The patient's white count was elevated at 14,000. The patient left against medical advice on 11/18/2024. FINAL DIAGNOSES: * COPD exacerbation. * Questionable pneumonia. Gram positive, gram negative with questionable sepsis. * Tobacco abuse. * Chest pain, likely secondary to GERD. * Hyperlipidemia. * History of pericarditis. * Noncompliance. MD ESTUARDO Claros/SHAKILA TID: [id number] RECEIPT: [id number]
== END 2024-11-18 20:30 | disposition left against medical advice (07) | DRG 720 ==
LOC: ER 03:26 → EDBD 03:26 → OVERFLOW 08:01 → TELE-CENTR 18:25
PROVIDERS: ADMIT Internal Medicine; ATTEND Internal Medicine
DX: A41.59 Other Gram-negative sepsis (principal); J15.69 Pneumonia due to other Gram-negative bacteria; I20.0 Unstable angina; J15.9 Unspecified bacterial pneumonia; J44.1 Chronic obstructive pulmonary disease with (acute) exacerbation; Z53.29 Procedure and treatment not carried out because of patient's decision for other reasons; K21.9 Gastro-esophageal reflux disease without esophagitis; E78.5 Hyperlipidemia, unspecified; R73.9 Hyperglycemia, unspecified; F17.210 Nicotine dependence, cigarettes, uncomplicated; Z91.199 Patient's noncompliance with other medical treatment and regimen due to unspecified reason; Z79.1 Long term (current) use of non-steroidal anti-inflammatories (NSAID); Z79.899 Other long term (current) drug therapy
CPT/HCPCS: 36415; 71045; 80053; 80061; 80307; 81001; 83036; 83690; 83880; 84443; 84484; 85025; 85379; 87040; 93005; 94640; 96365; 96375; G0378; J2405